=== PATIENT | male | born 2000 | race Two or more races ===

== ENCOUNTER → 2024-03-25 | Emergency (ER) | payer OTHER ==
[~2024-03-25] VITALS: Ht 190.5 cm; Wt 88.5 kg
[~2024-03-25] MED LIST: GENTAMICIN SULFATE 0.15 MG/DR DROPS 5ML OP ONE; GENTAMICIN SULFATE 3.5 GM TUBE OP ONE; KETOROLAC TROMETHAMINE 60 MG VIAL IM ONE; TETRACAINE HCL 20 DR/ML DROPS OP ONE
== END | disposition home or self-care (01) ==
LOC: ER 12:57
DX: H57.12 Ocular pain, left eye (principal)